=== PATIENT | male | born 1970 | race Caucasian/White ===

== ENCOUNTER 2020-03-23 09:50 | Day surgery (SDC) | payer MEDICAID ==
[2020-03-22 14:04] LABS: COVID AG,FIA SOURCE NASOPHARYNGEAL
[~2020-03-23] VITALS: Ht 172.7 cm; Wt 66.5 kg
[~2020-03-23 09:50] MED LIST: CYAN100T45 PO; DOCU-275 PO; PANT40TA54 PO; SODIUM CHLORIDE 0.9% 1,000 ML ONE
[2020-03-23] MEDS ORDERED: PROPOFOL 1% 20 ML VIAL IVP ONE (09:51)
[2020-03-23] MEDS ORDERED: FentaNYL CITRATE-PF 100 MCG/2 ML VIAL IVP PRN (10:15)
[2020-03-23] MEDS ORDERED: HYDROmorphone 2 MG/ML SYRINGE IVP PRN (10:15)
[2020-03-23] MEDS: SODIUM CHLORIDE 0.9% 1,000 ML IV ONE (10:46)
[2020-03-23] MEDS ORDERED: OXYGEN THERAPY IH SCH (20:00)
== END 2020-03-23 14:05 | disposition home or self-care (01) ==
LOC: SURGERY 09:50
PROVIDERS: ATTEND Internal Medicine Gastroenterology
DX: K92.1 Melena (principal); K29.50 Unspecified chronic gastritis without bleeding; K64.8 Other hemorrhoids; G89.29 Other chronic pain; D64.9 Anemia, unspecified; Z79.899 Other long term (current) drug therapy; Z72.89 Other problems related to lifestyle; Z98.890 Other specified postprocedural states
CPT/HCPCS: 45378; 43239; 87426; 88305; 88312; 88313; C1769; J2704; J7030